=== PATIENT | male | born 1940 | race Caucasian/White ===

== ENCOUNTER → 2018-12-29 | Outpatient (CLI) | payer MEDICARE ==
[~2018-12-29] MED LIST: ALL100 PO; ALL300 PO; ALLO-119 PO; ALLO100T70 PO; ASPI-1471 PO; ASPI-715 PO; CALC-597 PO; CALC1TAB32 PO; CYC10 PO; DIPH0.5S2 IM; FEN145 PO; FLU45SYR17 IM; FLUT16SP19 NS; GLUC-198 PO; GLUC-307 PO; INUL2TAB7 PO; KET10 PO; LOR7.5/325 PO; MEDROL DOSE PACK; MOM PO; NIAC100040 PO; OXYC-717 PO; OXYC-865 PO; PER PO; PNEU0.5D3 IM; RIV10 PO; SILD100T59 PO; SILD25TA6 PO; SIMV-49 PO; TRI05T TP; [UNRECOGNIZED DRUG - CODE] PO; [UNRECOGNIZED DRUG - CODE] PO
--- NOTE | 2018-12-29 13:45 | EKG ---
FACILITY: [facility] PATIENT NAME: TORITO ROBERTS : [id number] MR: [id number] V: [id number] EXAM DATE: ORDERING PHYSICIAN: BOGDAN BRIZUELA TECHNOLOGIST: JERICA Jalloh Reason : SOB Blood Pressure : / mmHG Vent. Rate : 068 BPM Atrial Rate : 068 BPM P-R Int : 184 ms QRS Dur : 154 ms QT Int : 450 ms P-R-T Axes : 108 098 -73 degrees QTc Int : 478 ms Suspect arm lead reversal, interpretation assumes no reversal Sinus rhythm with premature supraventricular complexes and fusion complexes with ventricular escape c omplexes Left ventricular hypertrophy with QRS widening and repolarization abnormality Lateral infarct , age undetermined Abnormal ECG When compared with ECG of 11-JUL-2015 10:23, Significant changes have occurred Referred By: Confirmed By:
== END ==
LOC: RESP 11:54
PROVIDERS: ATTEND Internal Medicine
DX: Z02.9 Encounter for administrative examinations, unspecified (principal)

== ENCOUNTER → 2019-01-05 | Outpatient (CLI) | payer MEDICARE | LOC: RESP 01:08 | PROVIDERS: ATTEND Internal Medicine | DX: I45.10 Unspecified right bundle-branch block (principal); I49.3 Ventricular premature depolarization | CPT/HCPCS: 93225; 93306 ==

== ENCOUNTER → 2019-01-28 | Outpatient (CLI) | payer MEDICARE ==
--- NOTE | 2019-01-29 11:32 | RADIOLOGY IMAGING REPORT ---
FACILITY: [facility] [place] PATIENT NAME: Gregor Enriquez : 1940 MR: [id number] V: [id number] EXAM DATE: ORDERING PHYSICIAN: BOGDAN BRIZUELA TECHNOLOGIST: Location: [facility] Patient: Gregor Enriquez : 1940 Visit/Account:[id number] Date of Sevice: 01/28/2019 EXAMINATION: Single Isotope SPECT Imaging with Exercise and Gated SPECT Imaging DATE OF EXAMINATION: 01/28/2019 DATE OF INTERPRETATION: 01/29/2019 REQUESTING PHYSICIAN: BOGDAN BRIZUELA INDICATION: The patient is a 78-year-old male evaluated for PVCs. PROCEDURE: After informed consent the patient received an intravenous injection of 12.7 mCi of Tc-9 9m sestamibi followed at the appropriate time interval by rest imaging. The patient then exercised a ccording to the standard Aldo protocol for 6 minutes achieving 8 METS. Resting heart rate was 69 bp m with a peak heart rate of 173 bpm which is 121 % of maximal predicted heart rate for age. Blood p ressure at rest was 120 / 91; blood pressure during exercise was 161 / 97. There was no chest pain d uring exercise. Exercise was discontinued because of fatigue. Baseline EKG demonstrates sinus rhyth m. There were no EKG changes of ischemia at peak exercise. Approximately one minute and 30 seconds prior to the termination of exercise, the patient received an intravenous injection of 28.5 mCi of Tc -99m sestamibi followed by stress imaging. RAW DATA: Examination of the summed raw data revealed a good quality study. MYOCARDIAL PERFUSION: The tomographic images demonstrate normal myocardial perfusion with no evidenc e of infarct or ischemia. There is no TID. GATED IMAGES: The gated images demonstrate normal ejection fraction 55% with normal wall motion and thickening IMPRESSION: 1. Normal treadmill ECG 2. Normal myocardial perfusion scan. 3. Normal LV systolic function; LVEF 55%. 4. Based on the results of this exam, the patient appears to be at low risk for future cardiovascular events. Report Dictated By: Ayan Marroquin at 01/29/2019 11:21 AM Report E-Signed By: Ayan Marroquin at 01/29/2019 11:24 AM WSN:[id number]
== END ==
LOC: NUC 01:32
PROVIDERS: ATTEND Internal Medicine
DX: I49.3 Ventricular premature depolarization (principal)
CPT/HCPCS: 78452; 93017; A9500